=== PATIENT | male | born 1965 | race Caucasian/White ===

== ENCOUNTER → 2016-12-05 | Day surgery (SDC) | payer OTHER ==
[~2016-12-05] MED LIST: NO MEDICATIONS
--- NOTE | ~2016-12-05 | OR ---
Unit #: [id number] #: [id number] Patient: CORETTA VO [id number] [address] [place], [place] [address] [id number] O MR#: [id number] NAME: CORETTA VO ROOM: Date of Procedure: 12/05/2016 Admission Date: 12/05/2016 Surgeon: Loi Milligan M.D. : 1965 Attending Physician: Loi Milligan M.D. OPERATIVE REPORT PREOPERATIVE DIAGNOSIS Strong family history of colon cancer. POSTOPERATIVE DIAGNOSIS Rare sigmoid diverticulum. PROCEDURE PERFORMED Colonoscopy to cecum. ANESTHESIA IV sedation. COMPLICATIONS None. INDICATIONS FOR PROCEDURE The patient is a 51-year-old gentleman, who presents with a strong family history of colon cancer, history of polyps. He presents for endoscopic evaluation. DESCRIPTION OF PROCEDURE The patient was taken to the operative theater and placed in left lateral decubitus position. IV sedation was initiated. Digital rectal exam was normal. Colonoscope was then passed under direct vision and navigated to the cecum. The patient had excellent prep. I visualized the entire colon. I saw no evidence of neoplastic lesions. There were some scattered diverticula in the sigmoid colon, but no inflammation. No colitis. No other findings. He tolerated the procedure well and sent to the recovery room in good condition. PLAN Recommend Colace on a daily basis. We will follow up colonoscopy in 5 to 10 years. Dictated by... Loi Milligan M.D. JNO/hernandol TD: 12/05/2016 16:45 Unit #: [id number] #: [id number] Patient: CORETTA VO JOB #: [id number] OPERATIVE REPORT Page 1 of 1 X Loi Milligan MD X PROCEDURE OPERATIVE NOTE
== END | disposition home or self-care (01) ==
LOC: COPS 11:51
DX: Z12.11 Encounter for screening for malignant neoplasm of colon (principal); K57.30 Diverticulosis of large intestine without perforation or abscess without bleeding; Z86.010 Personal history of colon polyps; Z80.0 Family history of malignant neoplasm of digestive organs; Z98.52 Vasectomy status
CPT/HCPCS: J2250

== ENCOUNTER → 2016-12-09 | Day surgery (SDC) | payer OTHER ==
--- NOTE | ~2016-12-09 | OR ---
Unit #: [id number] #: [id number] Patient: CORETTA VO [id number] [id number] [facility]. [place], [place] [address] [id number] O MR#: [id number] NAME: CORETTA VO ROOM: Date of Procedure: 12/09/2016 Admission Date: 12/09/2016 Surgeon: Loi Milligan M.D. : 1965 Attending Physician: Loi Milligan M.D. Primary Care Physician: Shamir Dukes M.D. OPERATIVE REPORT PREOPERATIVE DIAGNOSIS Left inguinal hernia. POSTOPERATIVE DIAGNOSIS Direct left inguinal hernia. PROCEDURE PERFORMED Laparoscopic preperitoneal inguinal hernia repair of direct left inguinal hernia. OIL HEATER OPERATOR Armen Colvin M.D. ANESTHESIA General. ESTIMATED BLOOD LOSS Minimal. IV FLUIDS 700 crystalloid. COMPLICATIONS None. INDICATIONS FOR PROCEDURE The patient is a 51-year-old gentleman with a bulge in his left groin consistent with a hernia. DESCRIPTION OF PROCEDURE The patient was taken to the operating theater and placed in a supine position. General anesthesia was induced, and the abdomen was prepped and draped. An infraumbilical incision was then made. A small incision was made in the anterior sheath. I created the preperitoneal space with blunt dissection. I then placed a Veress needle intra-abdominally. The abdomen was insufflated to 15 mmHg with CO2. I placed a 5-mm port. General inspection of the abdomen revealed a left-sided direct inguinal hernia, not incarcerated. I then released the pneumoperitoneum. Using the AutoSuture balloon dissection system, I created the preperitoneal space on the left side only. I then placed two 5-mm ports in the midline and dissected the left Unit #: [id number] #: [id number] Patient: CORETTA VO groin identifying the lateral space. The cord was skeletonized. The peritoneal reflection was reduced. The direct hernia was reduced. I identified Jabier ligament. I placed a large 3DMax mesh into position. This was anteriolized and covered the direct and indirect spaces nicely. This was secured to Jabier's as well as lateral anterior musculature. I then released the pneumopreperitoneum with care taken to avoid the peritoneum sliding posterior to the mesh. Hemostasis was adequate. I removed the ports under direct vision and closed the fascia with 0 Vicryl and the skin with 4-0 Vicryl. The patient tolerated the procedure well and was sent to recovery room in good condition. Dictated by... Cristal Hernandez/kenji TD: 12/11/2016 02:33 JOB #: [id number] OPERATIVE REPORT Page 1 of 1 X Loi Milligan MD X PROCEDURE OPERATIVE NOTE
== END | disposition home or self-care (01) ==
LOC: CSUR 11:17
DX: K40.90 Unilateral inguinal hernia, without obstruction or gangrene, not specified as recurrent (principal); Z80.0 Family history of malignant neoplasm of digestive organs; Z98.52 Vasectomy status
CPT/HCPCS: C1781; J0330; J0690; J2250; J2405; J2710; J3010